=== PATIENT | male | born 1985 | race Hispanic/Latino ===

== ENCOUNTER → 2019-01-22 | Outpatient (REF) ==
[~2019-01-22] MED LIST: AMOXICILLIN500 MG OR; NO HOME MEDS
[2019-01-22 08:22] LABS: CHOLESTEROL HDL RATIO 3.8 (<4.4 (CALC))
== END | disposition home or self-care (01) | DRG 951 ==
LOC: LAB 06:43
PROVIDERS: ATTEND Family Medicine
DX: Z02.6 Encounter for examination for insurance purposes (principal)

== ENCOUNTER 2023-08-05 12:20 | Emergency (ER) | payer OTHER ==
[~2023-08-05] VITALS: Ht 182.9 cm; Wt 104.0 kg
[2023-08-05 12:43] VITALS: BP 130/93
[2023-08-05 13:01] VITALS: BP 121/82
[2023-08-05] MEDS ORDERED: TRAMADOL HYDROC50 M1 PO (14:28)
[2023-08-05] MEDS ORDERED: NAPROXEN500 MG PO (14:28)
[2023-08-05] MEDS ORDERED: METHOCARBAMOL500 MG PO (14:28)
[2023-08-05 15:00] VITALS: BP 121/82
== END 2023-08-05 15:00 | disposition home or self-care (01) | DRG 552 ==
LOC: ED 12:20
DX: S16.1XXA Strain of muscle, fascia and tendon at neck level, initial encounter (principal); S39.012A Strain of muscle, fascia and tendon of lower back, initial encounter; V53.5XXA Driver of pick-up truck or van injured in collision with car, pick-up truck or van in traffic accident, initial encounter